=== PATIENT | male | born 1965 | race Caucasian/White ===

== ENCOUNTER 2023-06-01 16:10 | Outpatient (CLI) | payer OTHER, SELFPAY ==
--- NOTE | 2023-06-01 16:19 | MR_ITS ---
WS: [id number] MRI LEFT SHOULDER HISTORY: Pain. COMPARISON: Radiographs 04/16/2023 TECHNIQUE: Multiplanar sequences of the shoulder joint are submitted. Moderate AC joint arthritis. Osteophytic ridging around the AC joint with a small amount of subacromi al and subdeltoid bursal fluid. There is encroachment upon the supraspinatus. No os acromion. Normal position of the biceps tendon. Normal signal in the biceps tendon. High riding humeral head. Very small focal insertion site tear of the supraspinatus tendon. There is a small amount of adjacent edema. Additional tendinopathy with fraying along the bursal and articular surface of the rotator cuff. No muscle atrophy or edema. Cortical irregularity involving the humeral head. Small caliber anterior labrum with abnormal signal. There is additional degenerative changes i n the posterior labrum with a tear. Increased signal in the superior labrum. IMPRESSION: 1. Moderate AC joint arthritis. 2. Small focal insertion site tear supraspinatus tendon with no retraction. Additional fraying along the bursal and articular surface of the supraspinatus tendon. 3. Abnormal signal in the anterior, posterior and superior labrum consistent with tears and internal degeneration. 4. Mild osteoarthritis of the glenohumeral joint.
== END 2023-06-01 16:11 | disposition home or self-care (01) ==
LOC: RAD 16:10
PROVIDERS: PCP Nurse Practitioner; Visit Provider Nurse Practitioner
DX: M19.012 Primary osteoarthritis, left shoulder (principal); M75.102 Unspecified rotator cuff tear or rupture of left shoulder, not specified as traumatic
CPT/HCPCS: 73221

== ENCOUNTER → 2023-08-10 09:26 | Outpatient (BNVA) | payer OTHER, SELFPAY | PROVIDERS: PCP Nurse Practitioner; Visit Provider Student in an Organized Health Care Education/Training Program | DX: M75.102 Unspecified rotator cuff tear or rupture of left shoulder, not specified as traumatic | CPT/HCPCS: 73030; 99204 ==